=== PATIENT | male | born 1970 | race Caucasian/White ===

== ENCOUNTER 2018-12-17 16:01 | Emergency (ER) | payer OTHER ==
--- NOTE | 2018-12-17 16:30 | C.PDOC ---
History Of Present Illness 48 year old male with PMHx of CAD with cardiac cath (unsure of stents), HTN, and HLD presents to the ED complaining of shortness of breath for one week with intermittent chest pain and nonproductive cough. Reports pain is nonradiating and nonpleuritic. Denies current chest pain in the ED. Time Seen by Provider: 12/17/18 16:24 Chief Complaint (Nursing): Chest Pain History Per: Patient History/Exam Limitations: no limitations Onset/Duration Of Symptoms: Hrs, Intermittent Episodes Current Symptoms Are (Timing): Still Present Quality: "Pain" Past Medical History Reviewed: Historical Data, Nursing Documentation, Vital Signs Vital Signs: Last Vital Signs Temp 97.7 F 12/17/18 16:05 Pulse 70 12/17/18 16:05 Resp 18 12/17/18 16:05 BP 131/83 12/17/18 16:05 Pulse Ox 95 12/17/18 16:05 Primary Care Provider: Cheryl Campa - Medical History PMH: CAD, HTN, Hyperlipidemia Surgical History: No Surg Hx Family History: States: No Known Family Hx - Social History Hx Alcohol Use: No Hx Substance Use: No - Immunization History Hx Tetanus Toxoid Vaccination: No Hx Influenza Vaccination: Yes Hx Pneumococcal Vaccination: No Review Of Systems Constitutional: Negative for: Fever, Chills Cardiovascular: Positive for: Chest Pain. Negative for: Palpitations, Edema, Light Headedness Respiratory: Positive for: Cough, Shortness of Breath Gastrointestinal: Negative for: Nausea, Vomiting, Abdominal Pain, Diarrhea Genitourinary: Negative for: Dysuria, Hematuria Musculoskeletal: Negative for: Neck Pain, Back Pain Physical Exam - Physical Exam Appears: Non-toxic, No Acute Distress, Other (uncomfortable, speaking full sentences, occasional coughing ) Head: Normacephalic Eye(s): bilateral: PERRL, EOMI Oral Mucosa: Moist Neck: Supple Chest: Symmetrical Cardiovascular: Rhythm Regular, No Murmur Respiratory: No Accessory Muscle Use, No Rales, No Rhonchi, No Wheezing, Other (good air movement, CTA B/L ) Extremity: No Pedal Edema Extremity: Bilateral: Atraumatic, Normal Color And Temperature, Normal ROM Neurological/Psych: Oriented x3, Normal Speech Gait: Steady ED Course And Treatment - Laboratory Results Result Diagrams: 12/17/18 16:38 12/17/18 16:38 ECG: Interpreted By Me, Viewed By Me ECG Rhythm: Sinus Rhythm Interpretation Of ECG: Normal axis. No acute ST wave changes. Deep T inversion in I AVL and in V II- Rate From EC O2 Sat by Pulse Oximetry: 95 (RA) Pulse Ox Interpretation: Normal - Other Rad CXR X-Ray: Viewed By Me, Read By Radiologist Interpretation: Accession No. : [id number]. Patient Name / ID : PHOEBE Tamayo / [id number]. Exam Date : 12/17/2018 16:34:02 ( Approved ). Study Comment : Sex / Age : M / 48Y. Creator : Cadence Garibay MD. Dictator : Cadence Garibay MD. Pickle Cutter : Hog Ribber : Cadence Garibay MD. Approver2 : Report Date : 12/17/2018 17:08:05. My Comment : . HISTORY: chest pain. COMPARISON: None available. TECHNIQUE: Chest, one view. FINDINGS: Examination limited by habitus and hypoinflation. LUNGS: Mild left basilar atelectasis. Please note that chest x-ray has limited sensitivity for the detec tion of pulmonary masses. PLEURA: No significant pleural effusion identified. No definite pneumothorax . CARDIOVASCULAR: Heart size appears within normal limits. No significant atherosclerotic calcification present. OSSEOUS STRUCTURES: No acute osseous abnormality identified. VISUALIZED UPPER ABDOMEN: Unremarkable. OTHER FINDINGS: None. IMPRESSION: Mild left basilar atelectasis. Progress Note: EKG or CXR ordered and reviewed. Blood collected and sent to the lab for analysis. Patient treated with Aspirin. Discussed EKG results with Dr. Bolanos, Code heart guest relations agent. States patient does not meet the criteria for code heart. Patient wants to go home and refuses further examinations. Against Medical Advice - AMA Patient Left Against Medical Advice: The patient declines admission to the hospital and wishes to leave the Emergency Department. This action is against my medical advice. This decision was made with informed refusal. The patient was told that admission to the hospital is necessary. Explanation of the reasons why were discussed. The risks of leaving were explained to the patient and include, but are not limited to, worsening of known or currently unknown conditions, permanent disability and from undiagnosed or untreated conditions. The patient has the capacity to make this informed decision and understands my explanation of the current medical problem and risks of leaving. The patient voluntarily accepts these risks and signed an AMA form documenting our conversation. The patient was given the opportunity to ask questions and reconsider. The patient was encouraged to return to the Emergency Department at any time for further care. Disposition Counseled Patient/Family Regarding: Studies Performed, Diagnosis, Need For Followup, Rx Given - Disposition Referrals: Cheryl Campa MD [Non-Staff] - Disposition: AGAINST MEDICAL ADVICE Disposition Time: 18:00 Condition: STABLE Additional Instructions: TAKE ASPIRIN 81 MG EVERY DAY FOLLOW UP WITH YOUR DOCTOR IN 1-2 DAYS RETURN TO ER IMMEDIATELY IF YOUR SYMPTOMS RETURN/WORSEN Prescriptions: Guaifenesin [Expectorant] 200 mg PO Q4 PRN #15 tablet PRN Reason: MUCUS Instructions: Shortness of Breath (Dyspnea) (DC), Leaving Against Medical Advice Forms: [facility] (Swedish), (AMA) Informed Refusal Print Language: HEBREW - Clinical Impression Clinical Impression: Dyspnea, Abnormal EKG, Left against medical advice - Scribe Statement The provider has reviewed the documentation as recorded by the Scribe Ivonne Garduno All medical record entries made by the Scribe were at my direction and personally dictated by me. I have reviewed the chart and agree that the record accurately reflects my personal performance of the history, physical exam, medical decision making, and the department course for this patient. I have also personally directed, reviewed, and agree with the discharge instructions and disposition.
[2018-12-17 16:42] LABS: BASO % 0.3 % (0.0-2.0); EOS # 0.1 K/uL (0.0-0.7); EOS % 1.6 % (0.0-4.0); HEMOGLOBIN 15.2 g/dL (12.0-18.0); LYMPH # 2.5 K/uL (1.0-4.3); LYMPH % 31.3 % (20.0-40.0); MEAN CELL VOLUME 90.5 fL (80.0-94.0); MEAN CORPUSCULAR HEMOGLOBIN 30.3 pg (27.0-31.0); MEAN CORPUSCULAR HGB CONC 33.5 g/dL (33.0-37.0); MEAN PLATELET VOLUME 9.7 fL (7.2-11.7); MONO # 0.5 K/uL (0.0-0.8); MONO % 6.6 % (0.0-10.0); NEUT # 4.8 K/uL (1.8-7.0); NEUT % 60.2 % (50.0-75.0); NRBC % 0.1 % (0.0-2.0); RED CELL DISTRIBUTION WIDTH 13.5 % (11.5-14.5)
[2018-12-17 16:50] LABS: INR 1.1; PARTIAL THROMBOPLASTIN TIME 38.6 SECONDS (21-34); PROTHROMBIN TIME 12.2 SECONDS (9.7-12.2)
[2018-12-17 16:53] LABS: ALB/GLOB RATIO 1.4 (1.0-2.1); ALBUMIN 4.6 g/dL (3.5-5.0); ALT/SGPT 33 U/L (21-72); AST/SGOT 26 U/L (17-59); BLOOD UREA NITROGEN 20 mg/dL (9-20); CALCIUM 9.4 mg/dl (8.6-10.4); GFR NON-AFRICAN AMERICAN > 60
[2018-12-17 17:02] LABS: B-TYPE NATRIURETIC PEPTIDE 160 pg/mL (0-900)
--- NOTE | 2018-12-17 17:11 | RAD ---
HISTORY: chest pain COMPARISON: None available. TECHNIQUE: Chest, one view. FINDINGS: Examination limited by habitus and hypoinflation. LUNGS: Mild left basilar atelectasis. Please note that chest x-ray has limited sensitivity for the detection of pulmonary masses. PLEURA: No significant pleural effusion identified. No definite pneumothorax . CARDIOVASCULAR: Heart size appears within normal limits. No significant atherosclerotic calcification present. OSSEOUS STRUCTURES: No acute osseous abnormality identified. VISUALIZED UPPER ABDOMEN: Unremarkable. OTHER FINDINGS: None. IMPRESSION: Mild left basilar atelectasis.
[2018-12-17 18:03] VITALS: BP 114/65; PULSE 97; RESP 16; TEMP 97.8
[2018-12-17 18:19] VITALS: O2SAT 95
== END 2018-12-17 18:30 | disposition left against medical advice (07) ==
LOC: C.ER 16:01
DX: R06.00 Dyspnea, unspecified (principal); R94.31 Abnormal electrocardiogram [ECG] [EKG]

== ENCOUNTER 2018-12-20 11:58 | Inpatient (IN) | payer OTHER | END 2018-12-23 17:14 | disposition home or self-care (01) | LOC: C.ER 11:58 → C.9E 15:26 → C.6T 16:33 ==

== ENCOUNTER 2018-12-24 21:26 | Observation (INO) | payer OTHER ==
[2018-12-24 21:26] VITALS: BMI 33.7
[2018-12-24] MEDS ORDERED: Aspirin 325 mg EC Tablets PO STA (21:45)
--- NOTE | 2018-12-24 21:46 | C.PDOC ---
History Of Present Illness Patient presents with chest pain since am. Was discharged yesterday after a neg cardiac cath. Dull aching discomfort. No f/c/n/v. Speaking in complete sentences. Time Seen by Provider: 12/24/18 21:42 Chief Complaint (Nursing): Chest Pain History Per: Patient History/Exam Limitations: no limitations Onset/Duration Of Symptoms: Hrs Current Symptoms Are (Timing): Still Present Context: Other Severity: Moderate Pain Scale Rating Of: 4 Quality: Dull Associated Symptoms: denies: Nausea Modifying Factors: None Alleviating Factors: None Additional History Per: Patient Past Medical History Reviewed: Historical Data, Nursing Documentation, Vital Signs Vital Signs: Last Vital Signs Temp 97.9 F 12/24/18 21:30 Pulse 91 H 12/24/18 21:30 Resp 18 12/24/18 21:30 BP 133/90 12/24/18 21:30 Pulse Ox 96 12/24/18 21:30 Primary Care Provider: Cheryl Campa - Medical History PMH: CAD, HTN, Hypercholesterolemia, Hyperlipidemia Family History: States: No Known Family Hx - Social History Hx Alcohol Use: No Hx Substance Use: No - Immunization History Hx Tetanus Toxoid Vaccination: No Hx Influenza Vaccination: Yes Hx Pneumococcal Vaccination: No Review Of Systems Constitutional: Negative for: Fever, Chills Eyes: Negative for: Vision Change ENT: Negative for: Throat Pain Cardiovascular: Positive for: Chest Pain Respiratory: Negative for: Shortness of Breath Gastrointestinal: Negative for: Nausea, Vomiting, Abdominal Pain Genitourinary: Negative for: Dysuria Musculoskeletal: Negative for: Back Pain Skin: Negative for: Rash Neurological: Negative for: Weakness Psych: Positive for: Anxiety Physical Exam - Physical Exam Appears: Non-toxic Skin: Warm, Dry Head: Normacephalic Eye(s): bilateral: Normal Inspection Oral Mucosa: Moist Neck: Supple Chest: Symmetrical Cardiovascular: Rhythm Regular Respiratory: No Rales, Rhonchi, No Wheezing Gastrointestinal/Abdominal: Soft, No Tenderness, No Distention Back: No CVA Tenderness Extremity: No Tenderness Extremity: Bilateral: Atraumatic Pulses: Left Dorsalis Pedis: Normal, Right Dorsalis Pedis: Normal Neurological/Psych: Oriented x3, Normal Speech, Normal Cognition Gait: Steady ED Course And Treatment - Laboratory Results Result Diagrams: 12/24/18 21:53 12/24/18 21:53 ECG: Interpreted By Me, Viewed By Me ECG Rhythm: Sinus Rhythm (80), ST/T Changes (inf lat ischemic changes), Nonspecific Changes (unchanged from 12/20/18) O2 Sat by Pulse Oximetry: 96 Pulse Ox Interpretation: Normal - Radiology CXR: Interpreted by Me, Viewed By Me Progress Note: 9:42 pm sent ekg to dr yates. No criteria for code heart. Pt had an angio yesterday with clean coronaries. Will do CTA Disposition Discussed With Dr.: Jose Cruz Rose Comment: accepted the pt on his service and took ove rthe care at 1:36 AM Doctor Will See Patient In The: ED Counseled Patient/Family Regarding: Studies Performed, Diagnosis - Disposition Disposition: HOSPITALIZED Disposition Time: 21:46 Condition: FAIR Forms: [facility] (Lao) - POA Present On Arrival: None - Clinical Impression Clinical Impression: Chest pain Decision To Admit - Pt Status Changed To: Hospital Disposition Of: Observation - . Bed Request Type: Telemetry Admitting Physician: Jose Cruz Rose Patient Diagnosis: Chest pain
[2018-12-24 21:56] LABS: BASO % 0.5 % (0.0-2.0); EOS # 0.1 K/uL (0.0-0.7); EOS % 1.9 % (0.0-4.0); HEMOGLOBIN 15.6 g/dL (12.0-18.0); LYMPH # 2.2 K/uL (1.0-4.3); LYMPH % 28.1 % (20.0-40.0); MEAN CELL VOLUME 88.5 fL (80.0-94.0); MEAN CORPUSCULAR HEMOGLOBIN 31.2 pg (27.0-31.0); MEAN CORPUSCULAR HGB CONC 35.3 g/dL (33.0-37.0); MEAN PLATELET VOLUME 9.7 fL (7.2-11.7); MONO # 0.4 K/uL (0.0-0.8); MONO % 5.6 % (0.0-10.0); NEUT # 4.9 K/uL (1.8-7.0); NEUT % 63.9 % (50.0-75.0); NRBC % 0.1 % (0.0-2.0); RBC 4.98 Mil/uL (4.40-5.90); RED CELL DISTRIBUTION WIDTH 13.4 % (11.5-14.5); WHITE BLOOD COUNT 7.7 K/uL (4.8-10.8)
[2018-12-24 22:02] LABS: INR 1.2; PARTIAL THROMBOPLASTIN TIME 35.7 SECONDS (21-34); PROTHROMBIN TIME 13.2 SECONDS (9.7-12.2)
[2018-12-24] MEDS ORDERED: Aspirin 325 mg EC Tablets PO ONE (22:06)
[2018-12-24 22:10] LABS: ALB/GLOB RATIO 1.4 (1.0-2.1); ALBUMIN 4.4 g/dL (3.5-5.0); ALT/SGPT 85 U/L (21-72); AST/SGOT 68 U/L (17-59); BLOOD UREA NITROGEN 16 mg/dL (9-20); CALCIUM 9.7 mg/dl (8.6-10.4); GFR NON-AFRICAN AMERICAN > 60
[2018-12-24 22:21] LABS: B-TYPE NATRIURETIC PEPTIDE 428 pg/mL (0-900)
[2018-12-24] MEDS ORDERED: Iodixanol 320 MG/ML 100 ML BOTTLE IV ONE (23:06)
--- NOTE | 2018-12-25 01:42 | CP.PCM.HP ---
<Kevin Tomlin - Last Filed: 12/25/18 02:08> History of Present Illness - History of Present Illness History of Present Illness: Resident History & Physical for Hospitalist Service Patient is a 48 year old male with past medical history of CAD, hypertension, hypercholesterolemia, NIDDM2, HCV with cirrhosis presenting with chief complaint of chest discomfort which began this morning. Discomfort is described as an aching sensation located in epigastric region, with radiation up to his throat. Also admits to bilateral leg cramping unchanged from prior, which he gets while fasting. Patient had cardiac cath with Dr. Sykes on previous admission which was unremarkable. Denies fevers, chills, shortness of breath, nausea, vomiting, abdominal pain, diarrhea, dysuria. PMH: HCV (diagnosed 15 years ago in [place] and completed treatment [place] the [place]) with cirrhosis, NIDDM2, Hypercholesterolemia, HTN, CAD ([place] 10-12 years ago) PSH: cardiac cath 10-12 years ago and November 2018 SHx: Lives in with and kids. Smokes Hookah every 3 months. Denies drug or alcohol use. FHx: Family history of TB. Mother with HCV and liver cancer. Unsure of family history of cradiac disease. Allergies: NKDA PMD: W. Wassef Present on Admission - Present on Admission Any Indicators Present on Admission: No Review of Systems - Review of Systems All systems: reviewed and no additional remarkable complaints except (as per HPI) Past Patient History - Past Social History Smoking Status: Never Smoked - CARDIAC Hx Hypercholesterolemia: Yes Hx Hypertension: Yes - ENDOCRINE/METABOLIC Hx Endocrine Disorders: Yes Hx Diabetes Mellitus Type 2: Yes - HEMATOLOGICAL/ONCOLOGICAL Hx Blood Disorders: Yes Hx Hepatitis C: Yes - MUSCULOSKELETAL/RHEUMATOLOGICAL Hx Falls: No - PSYCHIATRIC Hx Substance Use: No - SURGICAL HISTORY Hx Surgeries: Yes Hx Cardiac Catheterization: Yes - ANESTHESIA Hx Anesthesia: Yes Hx Anesthesia Reactions: No Hx Malignant Hyperthermia: No Meds Allergies/Adverse Reactions: Allergies Allergy/AdvReac Type Severity Reaction Status Date / Time No Known Allergies Allergy Verified 12/24/18 21:42 Physical Exam - Additional Findings Additional findings: - Constitutional Appears: Non-toxic, No Acute Distress - Head Exam Head Exam: ATRAUMATIC, NORMOCEPHALIC - Eye Exam Eye Exam: EOMI, Normal appearance, PERRL - ENT Exam ENT Exam: Mucous Membranes Moist - Respiratory Exam Respiratory Exam: Clear to Auscultation Bilateral, NORMAL BREATHING PATTERN. absent: Rhonchi - Cardiovascular Exam Cardiovascular Exam: REGULAR RHYTHM, +S1, +S2. absent: Gallop, Rubs, Murmur, Tachycardia - GI/Abdominal Exam GI & Abdominal Exam: Soft, Normal Bowel Sounds. absent: Distended, Tenderness, Organomegaly - Extremities Exam Extremities Exam: Normal Capillary Refill, Normal Inspection. absent: Pedal Edema, Tenderness - Neurological Exam Neurological Exam: Alert, Awake, CN II-XII Intact, Oriented x3 - Skin Skin Exam: Dry, Intact, Normal Color, Warm Results - Vital Signs Recent Vital Signs: Last Vital Signs Temp 97.9 F 12/24/18 21:30 Pulse 91 H 12/24/18 21:30 Resp 18 12/24/18 21:30 BP 133/90 12/24/18 21:30 Pulse Ox 96 12/25/18 01:36 - Labs Result Diagrams: 12/24/18 21:53 12/24/18 21:53 Labs: Laboratory Results - last 24 hr 12/24/18 12/24/18 12/24/18 21:53 21:53 21:53 WBC 7.7 RBC 4.98 Hgb 15.6 Hct 44.1 MCV 88.5 MCH 31.2 H MCHC 35.3 RDW 13.4 Plt Count 274 MPV 9.7 Neut % (Auto) 63.9 Lymph % (Auto) 28.1 Divide % (Auto) 5.6 Eos % (Auto) 1.9 Baso % (Auto) 0.5 Neut # (Auto) 4.9 Lymph # (Auto) 2.2 Divide # (Auto) 0.4 Eos # (Auto) 0.1 Baso # (Auto) 0.0 PT 13.2 H INR 1.2 APTT 35.7 H Sodium 137 Potassium 3.4 L Chloride 103 Carbon Dioxide 26 Anion Gap 12 BUN 16 Creatinine 0.8 Est GFR ( Amer) > 60 Est GFR (Non-Af Amer) > 60 Random Glucose 205 H D Calcium 9.7 Total Bilirubin 0.8 AST 68 H D ALT 85 H D Alkaline Phosphatase 54 Troponin I 0.0310 NT-Pro-B Natriuret Pep 428 Total Protein 7.5 Albumin 4.4 Globulin 3.1 Albumin/Globulin Ratio 1.4 Assessment & Plan - Assessment and Plan (Free Text) Assessment: Patient is a 48 year old male with past medical history of CAD, hypertension, hypercholesterolemia, NIDDM2, HCV with cirrhosis presenting with chief complaint of chest pain. Plan: Atypical chest pain - EKG unchanged from prior admission - YAKOV neg x1, followup ROMIx2 - Cardiology, Dr. Sykes, consulted - ASA - Echocardiogram shows normal LVEF 71%, moderately to markedly increased left ventricular wall thickness - followup official CT PE read Transaminitis - Abd U/s: Limited study secondary to pt body habitus. Nodular and cirrhotic contour of the liver with associated increased echogenicity of the hepatic p arenchymal cortex suggestive for fatty infiltration vs. hepatic parenchymal disease. Partially contracted gallbladder. Limited visualization of the pancreas. - Hep C Ab reactive - HIV neg - Per pt, he has been diagnosed with HCV for past 15 y, [place] Hypokalemia - monitor and replete Seasonal allergies - Claritin daily Hx hyperlipidemia - Crestor 20 mg PO QHS - Total chol 239, LDL 187, TG 74, HDL 44 Hx NIDDM - Hold home Metformin - RISS, Hypoglycemia protocol - Accucheck q6h as pt is fasting for Ramadan - A1c 6.7 PPX Protonix, Lovenox Please note: pt is fasting due to Ramadan. Case reviewed with Dr. Rose Tomlin PGY-1 <Jose Cruz Rose - Last Filed: 12/25/18 06:25> Results - Vital Signs Recent Vital Signs: Last Vital Signs Temp 97.4 F L 12/25/18 02:20 Pulse 67 12/25/18 02:20 Resp 20 12/25/18 02:20 BP 125/74 12/25/18 02:20 Pulse Ox 98 12/25/18 02:20 - Labs Result Diagrams: 12/24/18 21:53 12/24/18 21:53 Labs: Laboratory Results - last 24 hr 12/24/18 12/24/18 12/24/18 21:53 21:53 21:53 WBC 7.7 RBC 4.98 Hgb 15.6 Hct 44.1 MCV 88.5 MCH 31.2 H MCHC 35.3 RDW 13.4 Plt Count 274 MPV 9.7 Neut % (Auto) 63.9 Lymph % (Auto) 28.1 Divide % (Auto) 5.6 Eos % (Auto) 1.9 Baso % (Auto) 0.5 Neut # (Auto) 4.9 Lymph # (Auto) 2.2 Divide # (Auto) 0.4 Eos # (Auto) 0.1 Baso # (Auto) 0.0 PT 13.2 H INR 1.2 APTT 35.7 H Sodium 137 Potassium 3.4 L Chloride 103 Carbon Dioxide 26 Anion Gap 12 BUN 16 Creatinine 0.8 Est GFR ( Amer) > 60 Est GFR (Non-Af Amer) > 60 Random Glucose 205 H D Calcium 9.7 Total Bilirubin 0.8 AST 68 H D ALT 85 H D Alkaline Phosphatase 54 Troponin I 0.0310 NT-Pro-B Natriuret Pep 428 Total Protein 7.5 Albumin 4.4 Globulin 3.1 Albumin/Globulin Ratio 1.4 Assessment & Plan - Date & Time Date: 12/25/18 (I have seen and examined the patient. I agree with the findings and plan of care as documented by Dr. Tomlin. Patient with chest pain. ROMIx3 with EKG. Aspirin and Statin. History of Hep C. Transaminitis. May need to follow up with ID for additional treatment. Also with history of diabetes. NISS and accuchecks. Monitor for acute changes.) Time: 06:24 Attending/Attestation - Attestation I have personally seen and examined this patient.: Yes I have fully participated in the care of the patient.: Yes I have reviewed all pertinent clinical information: Yes
[2018-12-25] MEDS ORDERED: Potassium Chloride 20 mEq ER Tab PO STA (02:05)
[2018-12-25] MEDS ORDERED: Dextrose 50% SYRINGE Inj (50 ml) IV PRN (02:16)
[2018-12-25] MEDS ORDERED: Glucagon Recombinant 1 mg Inj IM PRN (02:16)
[2018-12-25] MEDS ORDERED: Potassium Chloride 20 mEq ER Tab PO ONE (02:27)
[2018-12-25] MEDS: (Novolin R) Insulin Human Regular 100 units/ml vial SC SCH ×4 (07:54→21:31)
[2018-12-25] MEDS: Enoxaparin 40 mg Syringe SC SCH (10:01)
[2018-12-25 12:12] LABS: ALB/GLOB RATIO 1.4 (1.0-2.1); ALBUMIN 4.2 g/dL (3.5-5.0); ALT/SGPT 102 U/L (21-72); AST/SGOT 79 U/L (17-59); BLOOD UREA NITROGEN 18 mg/dL (9-20); CALCIUM 9.7 mg/dl (8.6-10.4); GFR NON-AFRICAN AMERICAN > 60
--- NOTE | 2018-12-25 13:13 | CT ---
Date of service: 12/25/2018 PROCEDURE: CT Chest with contrast (Pulmonary Angiogram) HISTORY: chest pain COMPARISON: None available. TECHNIQUE: Axial computed tomography images were obtained of the chest in the pulmonary arterial phase of enhancement. Coronal and sagittal reformatted images were created and reviewed. Intravenous contrast dose: 100 mL of Visipaque 320 intravenously. Radiation dose: Total exam DLP = 499.92 mGy-cm. This CT exam was performed using one or more of the following dose reduction techniques: Automated exposure control, adjustment of the mA and/or kV according to patient size, and/or use of iterative reconstruction technique. FINDINGS: PULMONARY ARTERIES: Unremarkable. No pulmonary embolism. AORTA: No acute findings. No thoracic aortic aneurysm. No aortic atherosclerotic calcification or mural plaque present. LUNGS: There is a mild to moderate pulmonary vascular congestion. Nonspecific ground-glass opacities noted in the lungs likely due to pulmonary congestion. Small opacities noted in the lingula and anterior aspect of the left lower lobe of uncertain is etiology. PLEURAL SPACES: Unremarkable. No effusion or pneumothorax. HEART: The heart is mildly enlarged. The main pulmonary artery is mildly enlarged. No evidence of pericardial effusion. LYMPH NODES: No lymphadenopathy. BONES, CHEST WALL: Unremarkable. No fracture or destructive lesion OTHER FINDINGS: Hepatomegaly and hepatic steatosis noted. IMPRESSION: No evidence of pulmonary embolus. Cardiomegaly. Mildly enlarged main pulmonary artery. Ehoj-du-dilcxurg pulmonary vascular congestion. Small opacities at left lower lung of uncertain etiology and may represent pneumonia versus atelectasis or aspiration.. [facility] contains concordant findings.
[2018-12-25 13:18] LABS: HEMOGLOBIN 15.5 g/dL (12.0-18.0); MEAN CORPUSCULAR HGB CONC 34.8 g/dL (33.0-37.0); MEAN PLATELET VOLUME 9.8 fL (7.2-11.7); RBC 5.01 Mil/uL (4.40-5.90); RED CELL DISTRIBUTION WIDTH 13.7 % (11.5-14.5)
[2018-12-25 13:41] LABS: CK-MB 1.53 ng/mL (0.0-3.38); TROPONIN I 0.023 ng/mL (0.00-0.120)
[2018-12-25] MEDS ORDERED: Sodium Chloride 0.9% 1,000 ML IV SCH (15:15)
--- NOTE | 2018-12-25 17:22 | CP.PCM.PN ---
Subjective - Date & Time of Evaluation Date of Evaluation: 12/25/18 Time of Evaluation: 19:35 - Subjective Subjective: PGY-[address] Keys Patient seen and examined at bedside. No acute events overnight. Patient states chest pain has improved, but still reporting some chest pain which he said feels like heartburn. However he does endorse that the pain he had yesterday was much more severe. Denies SOB, n/v/d/c, dizziness, fatigue, palpitations, focal weakness. Objective - Vital Signs/Intake and Output Vital Signs (last 24 hours): Temp Pulse Resp BP Pulse Ox 98.1 F 73 20 116/76 96 12/25/18 16:00 12/25/18 16:09 12/25/18 16:00 12/25/18 16:00 12/25/18 16:00 - Medications Medications: Current Medications Aspirin (Aspirin Chewable) 81 mg PO DAILY [facility] Last Admin: 12/25/18 09:58 Dose: Not Given Benzonatate (Tessalon Perles) 100 mg PO TID PRN PRN Reason: Cough Dextrose (Dextrose 50% Inj) 0 ml IV STAT PRN; Protocol PRN Reason: Hypoglycemia Protocol Dextrose (Glutose 15) 0 gm PO ONCE PRN; Protocol PRN Reason: Hypoglycemia Protocol Enoxaparin Sodium (Lovenox) 40 mg SC DAILY [facility] Last Admin: 12/25/18 10:01 Dose: 40 mg Glucagon (Glucagen Diagnostic Kit) 0 mg IM STAT PRN; Protocol PRN Reason: Hypoglycemia Protocol Dextrose (Dextrose 5% In Water 1000 Ml) 1,000 mls @ 0 mls/hr IV .Q0M PRN; Protocol PRN Reason: Hypoglycemia Protocol Sodium Chloride (Sodium Chloride 0.9%) 1,000 mls @ 50 mls/hr IV .Q20H [facility] Stop: 12/25/18 19:00 Last Admin: 12/25/18 16:07 Dose: Not Given Insulin Human Regular (Novolin R) 0 unit SC ACHS [facility]; Protocol Last Admin: 12/25/18 17:12 Dose: Not Given Loratadine (Claritin) 10 mg PO Q24H [facility] Last Admin: 12/25/18 03:06 Dose: 10 mg Pantoprazole Sodium (Protonix Inj) 40 mg IVP DAILY [facility] Last Admin: 12/25/18 10:01 Dose: 40 mg Rosuvastatin Calcium (Crestor) 20 mg PO HS [facility] - Labs Labs: 12/25/18 13:12 12/25/18 08:00 PT 13.2 SECONDS (9.7-12.2) H 12/24/18 21:53 INR 1.2 12/24/18 21:53 APTT 35.7 SECONDS (21-34) H 12/24/18 21:53 - Constitutional Appears: Non-toxic, In Acute Distress - Head Exam Head Exam: ATRAUMATIC, NORMOCEPHALIC - Eye Exam Eye Exam: EOMI - ENT Exam ENT Exam: Mucous Membranes Moist - Respiratory Exam Respiratory Exam: Clear to Ausculation Bilateral, NORMAL BREATHING PATTERN. absent: Rhonchi, Wheezes - Cardiovascular Exam Cardiovascular Exam: REGULAR RHYTHM, +S1, +S2 - GI/Abdominal Exam GI & Abdominal Exam: Soft, Normal Bowel Sounds. absent: Tenderness - Extremities Exam Extremities Exam: Normal Inspection. absent: Pedal Edema - Neurological Exam Neurological Exam: Alert, Awake, Oriented x3 - Psychiatric Exam Psychiatric exam: Normal Affect, Normal Mood - Skin Skin Exam: Dry, Intact Assessment and Plan - Assessment and Plan (Free Text) Assessment: Patient is a 48 year old male with past medical history of CAD, hypertension, hypercholesterolemia, NIDDM2, HCV with cirrhosis presenting with chief complaint of chest pain. Plan: Atypical chest pain - EKG unchanged from prior admission - YAKOV neg x1, followup ROMIx2 - Cardiology, Dr. Sykes, consulted - ASA - Echocardiogram shows normal LVEF 71%, moderately to markedly increased left ventricular wall thickness - Recent cath with normal coronaries - followup official CTA 12/24 - no evidence of PE - Cardiology consult, Dr. Bolanos - --Dr. Sykes requesting second opinion as patient with EKG changes and atypical chest pain despite negative recent cath. Transaminitis - Abd U/s: Limited study secondary to pt body habitus. Nodular and cirrhotic con tour of the liver with associated increased echogenicity of the hepatic p arenchymal cortex suggestive for fatty infiltration vs. hepatic parenchymal disease. Partially contracted gallbladder. Limited visualization of the pancreas. - Hep C Ab reactive - HIV neg - Per pt, he has been diagnosed with HCV for past 15 y, [place] Hypokalemia - monitor and replete Seasonal allergies - Claritin daily Hx hyperlipidemia - Crestor 20 mg PO QHS - Total chol 239, LDL 187, TG 74, HDL 44 Hx NIDDM - Hold home Metformin - RISS, Hypoglycemia protocol - Accucheck q6h as pt is fasting for Ramadan - A1c 6.7 PPX Protonix, Lovenox Please note: pt is fasting due to Ramadan. Assessment and plan d/w Dr. Massimo Salcedo, PGY-1
[2018-12-26 03:03] LABS: BARBITURATES, UR NEGATIVE (NEGATIVE); BENZODIAZEPINES, UR NEGATIVE (NEGATIVE); OPIATES, UR NEGATIVE (NEGATIVE); PHENCYCLIDINE, UR NEGATIVE (NEGATIVE)
--- NOTE | 2018-12-26 07:21 | CP.PCM.CON ---
History of Present Illness - History of Present Illness History of Present Illness: Lori Estrada, PGY1 Consult Note for Dr. 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 Cardio team is being consulted for the eval of pts chest discomfort. Pt states that he has had this pain for more than 2 weeks. Pt describes the discomfort as a burning sensation and states that he is not having chest pain. Pt reports that the discomfort is worse when he lays down flat after a meal and that he always notes radiation up to his esophagus. Pt denies any diaphoresis or SOB with these episodes. Pt reports that he has minimal improvement with famotidine which he has tried. At this time the pt admits to the burning sensation which is radiating up to his esophagus. Otherwise the pt denies any fevers, chills, headache, lightheadedness, chest pain, palpitations, SOB, cough, abd pain, n/v, c/d or dysuria. Of note pt had recent cardiac cath on 12/25/18: which showed patent coronary vessels as well as normal systolic function at 65%. Recent echo on 12/22/18: Also shows normal LVEF, apical hypertrophy and a grade 1 abnormal relaxation pattern. Review of Systems - Review of Systems Review of Systems: 12 Point ROS reviewed and negative except noted in HPI above. Past Patient History - Past Social History Smoking Status: Never Smoked - CARDIAC Hx Hypercholesterolemia: Yes Hx Hypertension: Yes - ENDOCRINE/METABOLIC Hx Endocrine Disorders: Yes Hx Diabetes Mellitus Type 2: Yes - HEMATOLOGICAL/ONCOLOGICAL Hx Blood Disorders: Yes Hx Hepatitis C: Yes - MUSCULOSKELETAL/RHEUMATOLOGICAL Hx Falls: No - PSYCHIATRIC Hx Substance Use: No - SURGICAL HISTORY Hx Surgeries: Yes Hx Cardiac Catheterization: Yes - ANESTHESIA Hx Anesthesia: Yes Hx Anesthesia Reactions: No Hx Malignant Hyperthermia: No Meds Home Medications: Home Medication List Medication Instructions Recorded Confirmed Type Aspirin [Aspirin Chewable] 81 mg PO DAILY #30 ctb 12/26/18 Rx Loratadine [Claritin] 10 mg PO Q24H #30 tab 12/26/18 Rx Rosuvastatin Calcium [Crestor] 20 mg PO HS #30 tab 12/26/18 Rx Sucralfate [Carafate Oral Susp] 1 gm PO TID 30 Days #90 udc 12/26/18 Rx Metoclopramide [Reglan] 5 mg PO ACHS #90 tab 12/27/18 Rx Metoprolol Succinate XL [Toprol XL] 25 mg PO DAILY 90 Days #90 tab 12/27/18 Rx Omeprazole 40 mg PO DAILY #30 capsule. 12/27/18 Rx metFORMIN [glucOPHAGE] 850 mg PO BID #60 tab 12/27/18 Rx Allergies/Adverse Reactions: Allergies Allergy/AdvReac Type Severity Reaction Status Date / Time No Known Allergies Allergy Verified 12/24/18 21:42 - Medications Medications: Current Medications Aspirin (Aspirin Chewable) 81 mg PO DAILY [facility] Last Admin: 12/25/18 21:32 Dose: 81 mg Benzonatate (Tessalon Perles) 100 mg PO TID PRN PRN Reason: Cough Dextrose (Dextrose 50% Inj) 0 ml IV STAT PRN; Protocol PRN Reason: Hypoglycemia Protocol Dextrose (Glutose 15) 0 gm PO ONCE PRN; Protocol PRN Reason: Hypoglycemia Protocol Enoxaparin Sodium (Lovenox) 40 mg SC DAILY [facility] Last Admin: 12/25/18 10:01 Dose: 40 mg Glucagon (Glucagen Diagnostic Kit) 0 mg IM STAT PRN; Protocol PRN Reason: Hypoglycemia Protocol Dextrose (Dextrose 5% In Water 1000 Ml) 1,000 mls @ 0 mls/hr IV .Q0M PRN; Protocol PRN Reason: Hypoglycemia Protocol Insulin Human Regular (Novolin R) 0 unit SC [facility]; Protocol Last Admin: 12/25/18 21:31 Dose: Not Given Loratadine (Claritin) 10 mg PO Q24H [facility] Last Admin: 12/26/18 01:53 Dose: 10 mg Pantoprazole Sodium (Protonix Inj) 40 mg IVP DAILY [facility] Last Admin: 12/25/18 10:01 Dose: 40 mg Rosuvastatin Calcium (Crestor) 20 mg PO HS [facility] Last Admin: 12/25/18 21:33 Dose: 20 mg Physical Exam - Constitutional Appears: Non-toxic, No Acute Distress - Head Exam Head Exam: ATRAUMATIC, NORMAL INSPECTION, NORMOCEPHALIC - Eye Exam Eye Exam: EOMI, Normal appearance, PERRL - Respiratory Exam Respiratory Exam: Clear to Auscultation Bilateral, NORMAL BREATHING PATTERN. absent: Accessory Muscle Use, Rales, Rhonchi, Respiratory Distress, Stridor - Cardiovascular Exam Cardiovascular Exam: RRR, +S1, +S2. absent: Gallop, Rubs - GI/Abdominal Exam GI & Abdominal Exam: Normal Bowel Sounds, Soft. absent: Distended, Firm, Guarding, Tenderness - Extremities Exam Extremities exam: Positive for: normal capillary refill, normal inspection, pedal pulses present. Negative for: calf tenderness, pedal edema - Back Exam Back exam: NORMAL INSPECTION. absent: CVA tenderness (L), CVA tenderness (R) - Neurological Exam Neurological exam: Alert, Oriented x3 - Psychiatric Exam Psychiatric exam: Normal Affect, Normal Mood - Skin Skin Exam: Dry, Intact, Normal Color Results - Vital Signs Recent Vital Signs: Last Vital Signs Temp 97.8 F 12/25/18 23:00 Pulse 67 12/25/18 23:43 Resp 20 12/25/18 23:00 BP 102/59 L 12/25/18 23:00 Pulse Ox 95 12/25/18 23:00 - Labs Result Diagrams: 12/27/18 07:05 12/27/18 07:05 Labs: Laboratory Results - last 24 hr 12/25/18 12/25/18 12/25/18 08:00 11:30 13:12 WBC RBC Hgb Hct MCV MCH MCHC RDW Plt Count MPV Sodium 135 Potassium 4.3 Chloride 103 Carbon Dioxide 23 Anion Gap 14 BUN 18 Creatinine 0.8 Est GFR ( Amer) > 60 Est GFR (Non-Af Amer) > 60 POC Glucose (mg/dL) 111 H Random Glucose 144 H D Calcium 9.7 Phosphorus 3.5 Magnesium 2.1 Total Bilirubin 0.6 AST 79 H ALT 102 H Alkaline Phosphatase 54 Total Creatine Kinase 85 89 CK-MB (Mass) 1.50 1.53 Troponin I 0.0290 0.0230 Total Protein 7.3 Albumin 4.2 Globulin 3.1 Albumin/Globulin Ratio 1.4 Urine Opiates Screen Urine Methadone Screen Ur Barbiturates Screen Ur Phencyclidine Scrn Ur Amphetamines Screen U Benzodiazepines Scrn U Oth Cocaine Metabols U Cannabinoids Screen 12/25/18 12/25/18 12/25/18 13:12 16:26 21:17 WBC 7.0 RBC 5.01 Hgb 15.5 Hct 44.6 MCV 89.0 MCH 31.0 MCHC 34.8 RDW 13.7 Plt Count 275 MPV 9.8 Sodium Potassium Chloride Carbon Dioxide Anion Gap BUN Creatinine Est GFR ( Amer) Est GFR (Non-Af Amer) POC Glucose (mg/dL) 101 192 H Random Glucose Calcium Phosphorus Magnesium Total Bilirubin AST ALT Alkaline Phosphatase Total Creatine Kinase CK-MB (Mass) Troponin I Total Protein Albumin Globulin Albumin/Globulin Ratio Urine Opiates Screen Urine Methadone Screen Ur Barbiturates Screen Ur Phencyclidine Scrn Ur Amphetamines Screen U Benzodiazepines Scrn U Oth Cocaine Metabols U Cannabinoids Screen 12/26/18 12/26/18 02:34 06:07 WBC RBC Hgb Hct MCV MCH MCHC RDW Plt Count MPV Sodium Potassium Chloride Carbon Dioxide Anion Gap BUN Creatinine Est GFR ( Amer) Est GFR (Non-Af Amer) POC Glucose (mg/dL) 243 H Random Glucose Calcium Phosphorus Magnesium Total Bilirubin AST ALT Alkaline Phosphatase Total Creatine Kinase CK-MB (Mass) Troponin I Total Protein Albumin Globulin Albumin/Globulin Ratio Urine Opiates Screen Negative Urine Methadone Screen Negative Ur Barbiturates Screen Negative Ur Phencyclidine Scrn Negative Ur Amphetamines Screen Negative U Benzodiazepines Scrn Negative U Oth Cocaine Metabols Negative U Cannabinoids Screen Negative Assessment & Plan - Assessment and Plan (Free Text) Assessment: Pt is a 48 yo M with pmhx of questionable CAD, HTN, HLD, NIDDM2, HCV w/cirrhosis who presents for epigastric burning with radiation up to esophagus which is worse at night. Plan: Chest discomfort likely 2/2 GERD: - Pt had recent cardiac cath on 12/25/18 and echo on 12/22/18. - Cath showed patent coronaries and normal LV sys function at 65% - Echo showed LVEF normal, apical hypertrophy and grade 1 abnormal relaxation pattern. - Pt denies any exertional chest pain, and states that is somewhat improved by famotidine, not related or improved by rest - Trops x3 (-) - Added Toprol XL 25 qd
--- NOTE | 2018-12-26 07:35 | CP.PCM.CON ---
History of Present Illness - History of Present Illness History of Present Illness: CC: Chest Pain Patient seen and examined this morning at bedside. Had epigastric pain in the morning radiated to throat Non exertional pain Objective - Additional Findings Additional findings: - Constitutional Appears: Non-toxic, No Acute Distress - Head Exam Head Exam: ATRAUMATIC, NORMOCEPHALIC - Eye Exam Eye Exam: Normal appearance - Neck Exam Neck exam: Negative for: Lymphadenopathy, Tenderness - Respiratory Exam Respiratory Exam: NORMAL BREATHING PATTERN. absent: Accessory Muscle Use, Rales, Rhonchi, Wheezes, Respiratory Distress - Cardiovascular Exam Cardiovascular Exam: REGULAR RHYTHM, +S1, +S2 - GI/Abdominal Exam GI & Abdominal Exam: Soft. absent: Tenderness - Extremities Exam Extremities exam: Negative for: calf tenderness, pedal edema - Neurological Exam Neurological exam: Alert, Oriented x3 - Psychiatric Exam Psychiatric exam: Normal Affect, Normal Mood - Skin Skin Exam: Dry, Warm Assessment and Plan - Assessment and Plan (Free Text) Plan: Atypical chest pain-Trop x 3 negative. Cath Normal Coronaries. CTA negative for PE/Aortic aneurysm and dissections Abnormal EKG-Unchanged ECHO 12/20/18: * LV EF ~ 70% * LVH. * apical hypertrophy * mild AR Trop is normal x3 (as well as 1 normal reading on 12/17/18) D-dimer negative Utox negative Cough/Bronchitis management as per primary team Hyperlipidemia DM HCV w/cirrhosis/Epigastric pain management as per primary team GI Consult Add Statins, SETH I and B blockers if patient can tolerate 2nd Opinion with Dr. Bolanos to r/o Cardiac etiology for the chest pain. (D/W Dr. Bolanos) Past Patient History - Past Social History Smoking Status: Never Smoked - CARDIAC Hx Hypercholesterolemia: Yes Hx Hypertension: Yes - ENDOCRINE/METABOLIC Hx Endocrine Disorders: Yes Hx Diabetes Mellitus Type 2: Yes - HEMATOLOGICAL/ONCOLOGICAL Hx Blood Disorders: Yes Hx Hepatitis C: Yes - MUSCULOSKELETAL/RHEUMATOLOGICAL Hx Falls: No - PSYCHIATRIC Hx Substance Use: No - SURGICAL HISTORY Hx Surgeries: Yes Hx Cardiac Catheterization: Yes - ANESTHESIA Hx Anesthesia: Yes Hx Anesthesia Reactions: No Hx Malignant Hyperthermia: No Meds Allergies/Adverse Reactions: Allergies Allergy/AdvReac Type Severity Reaction Status Date / Time No Known Allergies Allergy Verified 12/24/18 21:42 - Medications Medications: Current Medications Aspirin (Aspirin Chewable) 81 mg PO DAILY [facility] Last Admin: 12/25/18 21:32 Dose: 81 mg Benzonatate (Tessalon Perles) 100 mg PO TID PRN PRN Reason: Cough Dextrose (Dextrose 50% Inj) 0 ml IV STAT PRN; Protocol PRN Reason: Hypoglycemia Protocol Dextrose (Glutose 15) 0 gm PO ONCE PRN; Protocol PRN Reason: Hypoglycemia Protocol Enoxaparin Sodium (Lovenox) 40 mg SC DAILY [facility] Last Admin: 12/25/18 10:01 Dose: 40 mg Glucagon (Glucagen Diagnostic Kit) 0 mg IM STAT PRN; Protocol PRN Reason: Hypoglycemia Protocol Dextrose (Dextrose 5% In Water 1000 Ml) 1,000 mls @ 0 mls/hr IV .Q0M PRN; Protocol PRN Reason: Hypoglycemia Protocol Insulin Human Regular (Novolin R) 0 unit SC ACHS [facility]; Protocol Last Admin: 12/25/18 21:31 Dose: Not Given Loratadine (Claritin) 10 mg PO Q24H [facility] Last Admin: 12/26/18 01:53 Dose: 10 mg Pantoprazole Sodium (Protonix Inj) 40 mg IVP DAILY [facility] Last Admin: 12/25/18 10:01 Dose: 40 mg Rosuvastatin Calcium (Crestor) 20 mg PO HS [facility] Last Admin: 12/25/18 21:33 Dose: 20 mg Results - Vital Signs Recent Vital Signs: Last Vital Signs Temp 97.8 F 12/25/18 23:00 Pulse 67 12/25/18 23:43 Resp 20 12/25/18 23:00 BP 102/59 L 12/25/18 23:00 Pulse Ox 95 12/25/18 23:00 - Labs Result Diagrams: 12/25/18 13:12 12/25/18 08:00 Labs: Laboratory Results - last 24 hr 12/25/18 12/25/18 12/25/18 08:00 11:30 13:12 WBC RBC Hgb Hct MCV MCH MCHC RDW Plt Count MPV Sodium 135 Potassium 4.3 Chloride 103 Carbon Dioxide 23 Anion Gap 14 BUN 18 Creatinine 0.8 Est GFR ( Amer) > 60 Est GFR (Non-Af Amer) > 60 POC Glucose (mg/dL) 111 H Random Glucose 144 H D Calcium 9.7 Phosphorus 3.5 Magnesium 2.1 Total Bilirubin 0.6 AST 79 H ALT 102 H Alkaline Phosphatase 54 Total Creatine Kinase 85 89 CK-MB (Mass) 1.50 1.53 Troponin I 0.0290 0.0230 Total Protein 7.3 Albumin 4.2 Globulin 3.1 Albumin/Globulin Ratio 1.4 Urine Opiates Screen Urine Methadone Screen Ur Barbiturates Screen Ur Phencyclidine Scrn Ur Amphetamines Screen U Benzodiazepines Scrn U Oth Cocaine Metabols U Cannabinoids Screen 12/25/18 12/25/18 12/25/18 13:12 16:26 21:17 WBC 7.0 RBC 5.01 Hgb 15.5 Hct 44.6 MCV 89.0 MCH 31.0 MCHC 34.8 RDW 13.7 Plt Count 275 MPV 9.8 Sodium Potassium Chloride Carbon Dioxide Anion Gap BUN Creatinine Est GFR ( Amer) Est GFR (Non-Af Amer) POC Glucose (mg/dL) 101 192 H Random Glucose Calcium Phosphorus Magnesium Total Bilirubin AST ALT Alkaline Phosphatase Total Creatine Kinase CK-MB (Mass) Troponin I Total Protein Albumin Globulin Albumin/Globulin Ratio Urine Opiates Screen Urine Methadone Screen Ur Barbiturates Screen Ur Phencyclidine Scrn Ur Amphetamines Screen U Benzodiazepines Scrn U Oth Cocaine Metabols U Cannabinoids Screen 12/26/18 12/26/18 02:34 06:07 WBC RBC Hgb Hct MCV MCH MCHC RDW Plt Count MPV Sodium Potassium Chloride Carbon Dioxide Anion Gap BUN Creatinine Est GFR ( Amer) Est GFR (Non-Af Amer) POC Glucose (mg/dL) 243 H Random Glucose Calcium Phosphorus Magnesium Total Bilirubin AST ALT Alkaline Phosphatase Total Creatine Kinase CK-MB (Mass) Troponin I Total Protein Albumin Globulin Albumin/Globulin Ratio Urine Opiates Screen Negative Urine Methadone Screen Negative Ur Barbiturates Screen Negative Ur Phencyclidine Scrn Negative Ur Amphetamines Screen Negative U Benzodiazepines Scrn Negative U Oth Cocaine Metabols Negative U Cannabinoids Screen Negative
[2018-12-26 07:55] LABS: BASO % 0.1 % (0.0-2.0); EOS # 0.2 K/uL (0.0-0.7); HEMOGLOBIN 15.2 g/dL (12.0-18.0); LYMPH # 1.5 K/uL (1.0-4.3); LYMPH % 20.7 % (20.0-40.0); MEAN CELL VOLUME 89.1 fL (80.0-94.0); MEAN CORPUSCULAR HEMOGLOBIN 30.8 pg (27.0-31.0); MEAN CORPUSCULAR HGB CONC 34.5 g/dL (33.0-37.0); MEAN PLATELET VOLUME 10.3 fL (7.2-11.7); MONO # 0.6 K/uL (0.0-0.8); MONO % 8.7 % (0.0-10.0); NEUT % 68.5 % (50.0-75.0); RBC 4.95 Mil/uL (4.40-5.90); RED CELL DISTRIBUTION WIDTH 13.4 % (11.5-14.5); WHITE BLOOD COUNT 7.4 K/uL (4.8-10.8)
[2018-12-26] MEDS: (Novolin R) Insulin Human Regular 100 units/ml vial SC SCH ×4 (08:08→22:12)
[2018-12-26] MEDS ORDERED: Phytonadione 10 mg/ml Inj (Adult) SC STA (08:17)
[2018-12-26 08:51] LABS: ALB/GLOB RATIO 1.7 (1.0-2.1); ALBUMIN 4.3 g/dL (3.5-5.0); ALT/SGPT 87 U/L (21-72); AST/SGOT 47 U/L (17-59); BLOOD UREA NITROGEN 19 mg/dL (9-20); CALCIUM 9.5 mg/dl (8.6-10.4); GFR NON-AFRICAN AMERICAN > 60
[2018-12-26] MEDS ORDERED: Propofol 10 mg/ml Inj (20 ML) ONE (09:30)
[2018-12-26] MEDS ORDERED: Peg-Electrolyte Oral Soln 4L (Golytely) PO ONE (10:00)
[2018-12-26] MEDS: Sucralfate 1 gm/10 ml Oral Susp UD PO SCH ×4 (10:52→21:28)
[2018-12-26] MEDS: Enoxaparin 40 mg Syringe SC SCH (10:55)
--- NOTE | 2018-12-26 14:38 | CP.PCM.PN ---
<Kevin Tomlin L - Last Filed: 12/26/18 20:43> Subjective - Date & Time of Evaluation Date of Evaluation: 12/26/18 Time of Evaluation: 08:00 - Subjective Subjective: Resident Progress Note for Hospitalist Service Patient examined at bedside. No acute events overnight. Patient s/p EGD showing esophagitis, hiatal hernia, gastroparesis. Patient NPO for repeat EGD tomorrow with Dr. Brewer. Denies fevers, chills, chest pain, shortness of breath, diarrhea, dysuria. Objective - Vital Signs/Intake and Output Vital Signs (last 24 hours): Temp Pulse Resp BP Pulse Ox 98 F 77 12 123/78 96 12/26/18 10:05 12/26/18 12:00 12/26/18 10:05 12/26/18 10:05 12/26/18 10:05 Intake and Output: 12/26/18 12/26/18 06:59 18:59 Intake Total 400 Balance 400 - Medications Medications: Current Medications Aspirin (Aspirin Chewable) 81 mg PO DAILY [facility] Last Admin: 12/26/18 10:52 Dose: Not Given Benzonatate (Tessalon Perles) 100 mg PO TID PRN PRN Reason: Cough Dextrose (Dextrose 50% Inj) 0 ml IV STAT PRN; Protocol PRN Reason: Hypoglycemia Protocol Dextrose (Glutose 15) 0 gm PO ONCE PRN; Protocol PRN Reason: Hypoglycemia Protocol Enoxaparin Sodium (Lovenox) 40 mg SC DAILY [facility] Last Admin: 12/26/18 10:55 Dose: 40 mg Glucagon (Glucagen Diagnostic Kit) 0 mg IM STAT PRN; Protocol PRN Reason: Hypoglycemia Protocol Dextrose (Dextrose 5% In Water 1000 Ml) 1,000 mls @ 0 mls/hr IV .Q0M PRN; Protocol PRN Reason: Hypoglycemia Protocol Insulin Human Regular (Novolin R) 0 unit SC ACHS [facility]; Protocol Last Admin: 12/26/18 11:21 Dose: Not Given Lisinopril (Zestril) 2.5 mg PO DAILY [facility] Loratadine (Claritin) 10 mg PO Q24H [facility] Last Admin: 12/26/18 01:53 Dose: 10 mg Metoclopramide HCl (Reglan) 5 mg IVP Q6H [facility] Stop: 12/28/18 10:00 Last Admin: 12/26/18 14:20 Dose: Not Given Pantoprazole Sodium (Protonix Inj) 40 mg IVP DAILY [facility] Last Admin: 12/26/18 10:55 Dose: 40 mg Rosuvastatin Calcium (Crestor) 20 mg PO HS [facility] Last Admin: 12/25/18 21:33 Dose: 20 mg Sucralfate (Carafate Oral Susp) 1 gm PO TID [facility] Stop: 12/30/18 23:59 Last Admin: 12/26/18 14:20 Dose: Not Given - Labs Labs: 12/26/18 07:50 12/26/18 07:50 PT 13.2 SECONDS (9.7-12.2) H 12/24/18 21:53 INR 1.2 12/24/18 21:53 APTT 35.7 SECONDS (21-34) H 12/24/18 21:53 - Constitutional Appears: Non-toxic, In Acute Distress - Head Exam Head Exam: ATRAUMATIC, NORMOCEPHALIC - Eye Exam Eye Exam: EOMI - ENT Exam ENT Exam: Mucous Membranes Moist - Respiratory Exam Respiratory Exam: Clear to Ausculation Bilateral, NORMAL BREATHING PATTERN. absent: Rhonchi, Wheezes - Cardiovascular Exam Cardiovascular Exam: REGULAR RHYTHM, +S1, +S2 - GI/Abdominal Exam GI & Abdominal Exam: Soft, Normal Bowel Sounds. absent: Tenderness - Extremities Exam Extremities Exam: Normal Inspection. absent: Pedal Edema - Neurological Exam Neurological Exam: Alert, Awake, Oriented x3 - Psychiatric Exam Psychiatric exam: Normal Affect, Normal Mood - Skin Skin Exam: Dry, Intact Assessment and Plan - Assessment and Plan (Free Text) Assessment: Patient is a 48 year old male with past medical history of CAD, hypertension, hypercholesterolemia, NIDDM2, HCV with cirrhosis presenting with chief complaint of chest pain. Plan: Atypical chest pain, acute - EKG unchanged from prior admission - YAKOV neg x1, followup ROMIx2 - Cardiology, Dr. Sykes, consulted - ASA - Echocardiogram shows normal LVEF 71%, moderately to markedly increased left ventricular wall thickness - Recent cath with normal coronaries - followup official CTA 12/24 - no evidence of PE - Cardiology consult, Dr. Bolanos - Dr. Sykes requesting second opinion as patient with EKG changes and atypical chest pain despite negative recent cath Epigastric pain, acute - GI consulted, appreciate recs - Protonix - repeat EGD tomorrow for better visualization - NPO after midnight Transaminitis, chronic - Abd U/s: Limited study secondary to pt body habitus. Nodular and cirrhotic contour of the liver with associated increased echogenicity of the hepatic p arenchymal cortex suggestive for fatty infiltration vs. hepatic parenchymal disease. Partially contracted gallbladder. Limited visualization of the pancreas. - Hep C Ab reactive - HIV neg - Per pt, he has been diagnosed with HCV for past 15 y, [place] Hypokalemia, acute - monitor and replete Seasonal allergies, chronic - Claritin daily Hx hyperlipidemia, chronic - Crestor 20 mg PO QHS - Total chol 239, LDL 187, TG 74, HDL 44 Hx NIDDM, chronic - Hold home Metformin - RISS, Hypoglycemia protocol - Accucheck q6h as pt is fasting for Ramadan - A1c 6.7 PPX Protonix, Lovenox Please note: pt is fasting due to Ramadan. Dispo: pending repeat EGD and further GI recommendations Case reviewed with Dr. Damion Tomlin PGY-1 <Damion Deluca - Last Filed: 12/28/18 19:17> Objective - Vital Signs/Intake and Output Vital Signs (last 24 hours): Temp Pulse Resp BP Pulse Ox 98.3 F 76 20 107/69 97 12/27/18 16:25 12/27/18 16:25 12/27/18 16:25 12/27/18 16:25 12/27/18 16:25 - Labs Labs: 12/27/18 07:05 12/27/18 07:05 PT 13.2 SECONDS (9.7-12.2) H 12/24/18 21:53 INR 1.2 12/24/18 21:53 APTT 35.7 SECONDS (21-34) H 12/24/18 21:53 Attending/Attestation - Attestation I have personally seen and examined this patient.: Yes I have fully participated in the care of the patient.: Yes I have reviewed all pertinent clinical information, including history, physical exam and plan: Yes Notes (Text): 12/28/18 19:17 This is a late entry. Care of this patient was gone over in detail with resident Dr. Brown. Damion Deluca D.O.
[2018-12-26 15:37] VITALS: RESP 20
[2018-12-26] MEDS ORDERED: Bisacodyl 5mg EC Tab PO ONE (17:00)
--- NOTE | 2018-12-26 20:23 | CP.PCM.PN ---
Subjective - Date & Time of Evaluation Date of Evaluation: 12/26/18 Time of Evaluation: 09:20 - Subjective Subjective: Patient seen and evaluated No cardiac events noted Objective - Additional Findings Additional findings: - Constitutional Appears: Non-toxic, No Acute Distress - Head Exam Head Exam: ATRAUMATIC, NORMOCEPHALIC - Eye Exam Eye Exam: Normal appearance - Neck Exam Neck exam: Negative for: Lymphadenopathy, Tenderness - Respiratory Exam Respiratory Exam: NORMAL BREATHING PATTERN. absent: Accessory Muscle Use, Rales, Rhonchi, Wheezes, Respiratory Distress - Cardiovascular Exam Cardiovascular Exam: REGULAR RHYTHM, +S1, +S2 - GI/Abdominal Exam GI & Abdominal Exam: Soft. absent: Tenderness - Extremities Exam Extremities exam: Negative for: calf tenderness, pedal edema - Neurological Exam Neurological exam: Alert, Oriented x3 - Psychiatric Exam Psychiatric exam: Normal Affect, Normal Mood - Skin Skin Exam: Dry, Warm Assessment and Plan - Assessment and Plan (Free Text) Plan: Atypical chest pain-Trop x 3 negative. Cath Normal Coronaries. CTA negative for PE/Aortic aneurysm and dissections Abnormal EKG-Unchanged ECHO 12/20/18: * LV EF ~ 70% * LVH. * apical hypertrophy * mild AR Trop is normal x3 (as well as 1 normal reading on 12/17/18) D-dimer negative Utox negative Cough/Bronchitis management as per primary team Hyperlipidemia DM HCV w/cirrhosis/Epigastric pain management as per primary team GI Consult Add Statins, SETH I and B blockers if patient can tolerate Objective - Vital Signs/Intake and Output Vital Signs (last 24 hours): Temp Pulse Resp BP Pulse Ox 98.0 F 76 20 105/66 95 12/26/18 15:00 12/26/18 15:00 12/26/18 15:00 12/26/18 15:00 12/26/18 15:00 Intake and Output: 12/26/18 12/27/18 18:59 06:59 Intake Total 400 Balance 400 - Medications Medications: Current Medications Aspirin (Aspirin Chewable) 81 mg PO DAILY [facility] Last Admin: 12/26/18 10:52 Dose: Not Given Benzonatate (Tessalon Perles) 100 mg PO TID PRN PRN Reason: Cough Dextrose (Dextrose 50% Inj) 0 ml IV STAT PRN; Protocol PRN Reason: Hypoglycemia Protocol Dextrose (Glutose 15) 0 gm PO ONCE PRN; Protocol PRN Reason: Hypoglycemia Protocol Enoxaparin Sodium (Lovenox) 40 mg SC DAILY [facility] Last Admin: 12/26/18 10:55 Dose: 40 mg Glucagon (Glucagen Diagnostic Kit) 0 mg IM STAT PRN; Protocol PRN Reason: Hypoglycemia Protocol Dextrose (Dextrose 5% In Water 1000 Ml) 1,000 mls @ 0 mls/hr IV .Q0M PRN; Protocol PRN Reason: Hypoglycemia Protocol Insulin Human Regular (Novolin R) 0 unit SC [facility]; Protocol Last Admin: 12/26/18 16:58 Dose: Not Given Lisinopril (Zestril) 2.5 mg PO DAILY [facility] Loratadine (Claritin) 10 mg PO Q24H [facility] Last Admin: 12/26/18 01:53 Dose: 10 mg Metoclopramide HCl (Reglan) 5 mg IVP Q6H [facility] Stop: 12/28/18 10:00 Last Admin: 12/26/18 14:20 Dose: Not Given Pantoprazole Sodium (Protonix Inj) 40 mg IVP DAILY [facility] Last Admin: 12/26/18 10:55 Dose: 40 mg Rosuvastatin Calcium (Crestor) 20 mg PO HS [facility] Last Admin: 12/25/18 21:33 Dose: 20 mg Sucralfate (Carafate Oral Susp) 1 gm PO TID [facility] Stop: 12/30/18 23:59 Last Admin: 12/26/18 14:20 Dose: Not Given - Labs Labs: 12/26/18 07:50 12/26/18 07:50 PT 13.2 SECONDS (9.7-12.2) H 12/24/18 21:53 INR 1.2 12/24/18 21:53 APTT 35.7 SECONDS (21-34) H 12/24/18 21:53
--- NOTE | 2018-12-27 02:57 | CON ---
DATE: 12/25/2018 I was called for a GI consultation by the admitting medical team. The patient is seen and fully examined on 12/25/[address] Tian Sykes. The entire chart is reviewed including but not limited to the most recent lab and radiology study results, current and the previous medication lists, current and the previous medical events. Case discussed with the staff at length on 12/25/2018 at the time of my physical examination and GI consultation. HISTORY OF PRESENT ILLNESS: This is a 48-year-old male who was admitted to the hospital with the main complaints of midsternal pain and midepigastric pain post cardiac cath around two weeks ago, reported to be negative as per the image consultant. Denied any significant shortness of breath, chills or fever, evidence of active GI bleeding but nausea and dyspepsia mainly for the last three weeks. PAST MEDICAL HISTORY: Including but not limited to, 1. Hypertension. 2. Hyperlipidemia. 3. Coronary artery disease. 4. Peptic ulcer disease. SOCIAL HISTORY: No reported recent history of cigarette smoking or alcohol intake. FAMILY HISTORY: Unknown. CURRENT MEDICATIONS: Post-admission medication lists were reviewed. LABORATORY DATA: Initial blood test post admission showed normal CBC, but blood glucose level of 205 with potassium of 3.4. The patient had chest CAT scan done at the time of the admission, official report is seen indicative of cardiomegaly with possible pneumonia. PHYSICAL EXAMINATION: GENERAL: A 48-year-old male, afebrile with pulse of 92, respiratory rate 20 to 22, blood pressure of 130/82. HEENT: Showed pale, dry oral mucous membrane, nonicteric sclerae. LUNGS: Few scattered crepitation. Decreased air entry at bases. HEART: S1 and S2 with increased rate. ABDOMEN: Soft with mild generalized tenderness but mainly in the midepigastric and midabdominal line. No mass or organomegaly. No rebound tenderness or guarding. EXTREMITIES: Without significant clubbing, cyanosis or edema. NEUROLOGIC: No reported new neurological deficits, sensory or motor. No reported new focal deficits. IMPRESSION: 1. Chest pain, most likely noncardiac, to rule out gastric versus duodenal ulcer. 2. Multiple past medical histories as mentioned above. 3. Hyperglycemia of possible new episode. 4. On record, it has to be mentioned that the patient's troponin level reported to be normal as well as the total creatinine kinase with normal total protein and albumin. SUGGESTIONS: 1. Continue current management. 2. Carafate liquid. 3. Reglan IV. 4. Upper endoscopy at a.m. on 12/26/2018 when the patient is more stable clinically. 5. Further recommendation to follow and abdominal ultrasound to be ordered. Thank you for letting me to participate in your patient's case management. Usman Turner MD
[2018-12-27] MEDS: (Novolin R) Insulin Human Regular 100 units/ml vial SC SCH ×2 (07:09→12:58)
[2018-12-27 07:15] LABS: BASO % 0.2 % (0.0-2.0); EOS # 0.2 K/uL (0.0-0.7); EOS % 2.2 % (0.0-4.0); LYMPH # 1.5 K/uL (1.0-4.3); LYMPH % 19.9 % (20.0-40.0); MEAN CELL VOLUME 89.3 fL (80.0-94.0); MEAN CORPUSCULAR HEMOGLOBIN 30.7 pg (27.0-31.0); MEAN CORPUSCULAR HGB CONC 34.3 g/dL (33.0-37.0); MEAN PLATELET VOLUME 10.3 fL (7.2-11.7); MONO # 0.7 K/uL (0.0-0.8); MONO % 8.7 % (0.0-10.0); NEUT # 5.2 K/uL (1.8-7.0); RBC 5.23 Mil/uL (4.40-5.90); RED CELL DISTRIBUTION WIDTH 13.9 % (11.5-14.5); WHITE BLOOD COUNT 7.6 K/uL (4.8-10.8)
[2018-12-27 07:44] LABS: ALB/GLOB RATIO 1.5 (1.0-2.1); ALBUMIN 4.5 g/dL (3.5-5.0); ALT/SGPT 85 U/L (21-72); AST/SGOT 47 U/L (17-59); BLOOD UREA NITROGEN 15 mg/dL (9-20); CALCIUM 9.6 mg/dl (8.6-10.4); GFR NON-AFRICAN AMERICAN > 60
--- NOTE | 2018-12-27 08:31 | CP.PCM.PN ---
Objective - Vital Signs/Intake and Output Vital Signs (last 24 hours): Temp Pulse Resp BP Pulse Ox 98.1 F 67 20 103/66 95 12/27/18 00:00 12/27/18 00:00 12/27/18 00:00 12/27/18 00:00 12/27/18 00:00 - Medications Medications: Current Medications Aspirin (Aspirin Chewable) 81 mg PO DAILY [facility] Last Admin: 12/26/18 21:27 Dose: 81 mg Benzonatate (Tessalon Perles) 100 mg PO TID PRN PRN Reason: Cough Dextrose (Dextrose 50% Inj) 0 ml IV STAT PRN; Protocol PRN Reason: Hypoglycemia Protocol Dextrose (Glutose 15) 0 gm PO ONCE PRN; Protocol PRN Reason: Hypoglycemia Protocol Enoxaparin Sodium (Lovenox) 40 mg SC DAILY [facility] Last Admin: 12/26/18 10:55 Dose: 40 mg Glucagon (Glucagen Diagnostic Kit) 0 mg IM STAT PRN; Protocol PRN Reason: Hypoglycemia Protocol Dextrose (Dextrose 5% In Water 1000 Ml) 1,000 mls @ 0 mls/hr IV .Q0M PRN; Protocol PRN Reason: Hypoglycemia Protocol Insulin Human Regular (Novolin R) 0 unit SC ACHS [facility]; Protocol Last Admin: 12/27/18 07:09 Dose: Not Given Lisinopril (Zestril) 2.5 mg PO DAILY [facility] Loratadine (Claritin) 10 mg PO Q24H [facility] Last Admin: 12/27/18 01:52 Dose: 10 mg Metoclopramide HCl (Reglan) 5 mg IVP Q6H [facility] Stop: 12/28/18 10:00 Last Admin: 12/27/18 01:54 Dose: Not Given Pantoprazole Sodium (Protonix Inj) 40 mg IVP DAILY [facility] Last Admin: 12/26/18 10:55 Dose: 40 mg Rosuvastatin Calcium (Crestor) 20 mg PO HS [facility] Last Admin: 12/26/18 21:27 Dose: 20 mg Sucralfate (Carafate Oral Susp) 1 gm PO TID [facility] Stop: 12/30/18 23:59 Last Admin: 12/26/18 21:28 Dose: 1 gm - Labs Labs: 12/27/18 07:05 12/27/18 07:05 PT 13.2 SECONDS (9.7-12.2) H 05/25/19 21:53 INR 1.2 12/24/18 21:53 APTT 35.7 SECONDS (21-34) H 12/24/18 21:53 Assessment and Plan - Assessment and Plan (Free Text) Assessment: Patient is a 48 year old male with past medical history of CAD, hypertension, hypercholesterolemia, NIDDM2, HCV with cirrhosis presenting with chief complaint of chest pain. Plan: Atypical chest pain, acute - ACS vs GERD - EKG unchanged from prior admission - YAKOV neg x3 - Cardiology, Dr. Sykes, consulted - ASA - Echocardiogram shows normal LVEF 71%, moderately to markedly increased left ventricular wall thickness - Recent cath with normal coronaries - followup official CTA 12/24 - no evidence of PE - Cardiology consult, Dr. Bolanos - for second opinion per request of Dr. Sykes - -Stress test today - f/u - -Add SETH - Lisinopril 2.5 mg daily Meds -Lisinopril 2.5 mg PO daily -Crestor 20 mg PO HS Epigastric pain, acute - GI consulted, appreciate recs - Protonix - repeat EGD - f/u Transaminitis, chronic - Abd U/s: Limited study secondary to pt body habitus. Nodular and cirrhotic contour of the liver with associated increased echogenicity of the hepatic p arenchymal cortex suggestive for fatty infiltration vs. hepatic parenchymal disease. Partially contracted gallbladder. Limited visualization of the pancreas. - Hep C Ab reactive - HIV neg - Per pt, he has been diagnosed with HCV for past 15 y, [place] Hypokalemia, acute - monitor and replete Seasonal allergies, chronic - Claritin daily Hx hyperlipidemia, chronic - Crestor 20 mg PO QHS - Total chol 239, LDL 187, TG 74, HDL 44 Hx NIDDM, chronic - Hold home Metformin - RISS, Hypoglycemia protocol - Accucheck q6h as pt is fasting for Ramadan - A1c 6.7 PPX Protonix, Lovenox Please note: pt is fasting due to Ramadan. Dispo: pending repeat EGD and further GI recommendations Assessment and plan d/w Dr. Damion Salcedo, PGY-1
[2018-12-27] MEDS ORDERED: Midazolam 2 MG/2 ML VIAL ONE (10:46)
[2018-12-27] MEDS ORDERED: Propofol 10 mg/ml Inj (20 ML) ONE (10:46)
[2018-12-27] MEDS ORDERED: Belladonna-Phenobarbital PO STA (10:51)
[2018-12-27] MEDS ORDERED: Lidocaine Hydrochloride 5 ML INJ ONE (10:58)
[2018-12-27] MEDS: Sucralfate 1 gm/10 ml Oral Susp UD PO SCH ×2 (12:42→13:26)
[2018-12-27] MEDS: Enoxaparin 40 mg Syringe SC SCH (12:43)
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
--- NOTE | 2018-12-27 14:53 | CP.PCM.DIS ---
<Harry Salcedo - Last Filed: 12/27/18 15:15> Provider - Provider Date of Admission: 12/25/18 01:35 Attending physician: Damion Deluca MD Consults: 12/25/18 02:01 Cardiology Consult Routine Comment: Consulting Provider: Tian Sykes Consulting Physician: Tian Sykes Reason for Consult: chest pain 12/25/18 15:05 Cardiology Consult Routine Comment: Consulting Provider: Tristan Bolanos Consulting Physician: Tristan Bolanos Reason for Consult: second opinion for chest pain 12/25/18 20:29 Gastroenterology Consult Routine Comment: gastritis Consulting Provider: Usman Brewer Consulting Physician: Usman Brewer Reason for Consult: gastritis Time Spent in preparation of Discharge (in minutes): 45 Diagnosis - Discharge Diagnosis (1) Hiatal hernia Status: Acute Hospital Course - Lab Results Lab Results: Most Recent Lab Values WBC 7.6 K/uL (4.8-10.8) 12/27/18 07:05 RBC 5.23 Mil/uL (4.40-5.90) 12/27/18 07:05 Hgb 16.0 g/dL (12.0-18.0) 12/27/18 07:05 Hct 46.7 % (35.0-51.0) 12/27/18 07:05 MCV 89.3 fL (80.0-94.0) 12/27/18 07:05 MCH 30.7 pg (27.0-31.0) 12/27/18 07:05 MCHC 34.3 g/dL (33.0-37.0) 12/27/18 07:05 RDW 13.9 % (11.5-14.5) 12/27/18 07:05 Plt Count 272 K/uL (130-400) 12/27/18 07:05 MPV 10.3 fL (7.2-11.7) 12/27/18 07:05 Neut % (Auto) 69.0 % (50.0-75.0) 12/27/18 07:05 Lymph % (Auto) 19.9 % (20.0-40.0) L 12/27/18 07:05 Archer % (Auto) 8.7 % (0.0-10.0) 12/27/18 07:05 Eos % (Auto) 2.2 % (0.0-4.0) 12/27/18 07:05 Baso % (Auto) 0.2 % (0.0-2.0) 12/27/18 07:05 Neut # (Auto) 5.2 K/uL (1.8-7.0) 12/27/18 07:05 Lymph # (Auto) 1.5 K/uL (1.0-4.3) 12/27/18 07:05 Archer # (Auto) 0.7 K/uL (0.0-0.8) 12/27/18 07:05 Eos # (Auto) 0.2 K/uL (0.0-0.7) 12/27/18 07:05 Baso # (Auto) 0.0 K/uL (0.0-0.2) 12/27/18 07:05 PT 13.2 SECONDS (9.7-12.2) H 12/24/18 21:53 INR 1.2 12/24/18 21:53 APTT 35.7 SECONDS (21-34) H 12/24/18 21:53 Sodium 136 mmol/L (132-148) 12/27/18 07:05 Potassium 3.9 mmol/L (3.6-5.2) 12/27/18 07:05 Chloride 101 mmol/L (98-107) 12/27/18 07:05 Carbon Dioxide 27 mmol/L (22-30) 12/27/18 07:05 Anion Gap 13 (10-20) 12/27/18 07:05 BUN 15 mg/dL (9-20) 12/27/18 07:05 Creatinine 0.9 mg/dL (0.8-1.5) 12/27/18 07:05 Est GFR ( Amer) > 60 12/27/18 07:05 Est GFR (Non-Af Amer) > 60 12/27/18 07:05 POC Glucose (mg/dL) 106 mg/dL (65-110) 12/27/18 12:58 Random Glucose 118 mg/dL (75-110) H D 12/27/18 07:05 Calcium 9.6 mg/dl (8.6-10.4) 12/27/18 07:05 Phosphorus 3.5 mg/dL (2.5-4.5) 12/27/18 07:05 Magnesium 1.9 mg/dL (1.6-2.3) 12/27/18 07:05 Total Bilirubin 1.0 mg/dL (0.2-1.3) 12/27/18 07:05 AST 47 U/L (17-59) 12/27/18 07:05 ALT 85 U/L (21-72) H 12/27/18 07:05 Alkaline Phosphatase 59 U/L (38-126) 12/27/18 07:05 Total Creatine Kinase 89 U/L (55-170) 12/25/18 13:12 CK-MB (Mass) 1.53 ng/mL (0.0-3.38) 12/25/18 13:12 Troponin I 0.0230 ng/mL (0.00-0.120) 12/25/18 13:12 NT-Pro-B Natriuret Pep 428 pg/mL (0-900) 12/24/18 21:53 Total Protein 7.6 g/dL (6.3-8.3) 12/27/18 07:05 Albumin 4.5 g/dL (3.5-5.0) 12/27/18 07:05 Globulin 3.1 gm/dL (2.2-3.9) 12/27/18 07:05 Albumin/Globulin Ratio 1.5 (1.0-2.1) 12/27/18 07:05 Urine Opiates Screen Negative (NEGATIVE) 12/26/18 02:34 Urine Methadone Screen Negative (NEGATIVE) 12/26/18 02:34 Ur Barbiturates Screen Negative (NEGATIVE) 12/26/18 02:34 Ur Phencyclidine Scrn Negative (NEGATIVE) 12/26/18 02:34 Ur Amphetamines Screen Negative (NEGATIVE) 12/26/18 02:34 U Benzodiazepines Scrn Negative (NEGATIVE) 12/26/18 02:34 U Oth Cocaine Metabols Negative (NEGATIVE) 12/26/18 02:34 U Cannabinoids Screen Negative (NEGATIVE) 12/26/18 02:34 - Hospital Course Hospital Course: HPI Patient is a 48 year old male with past medical history of CAD, hypertension, hypercholesterolemia, NIDDM2, HCV with cirrhosis presenting with chief complaint of chest discomfort which began this morning. Discomfort is described as an aching sensation located in epigastric region, with radiation up to his throat. Also admits to bilateral leg cramping unchanged from prior, which he gets while fasting. Patient had cardiac cath with Dr. Sykes on previous admission which was unremarkable. Denies fevers, chills, shortness of breath, nausea, vomiting, abdominal pain, diarrhea, dysuria. Hospital Course Patient was hospitalized for chest pain workup to rule out ACS. Patient had been hospitalized with recent cath just days prior to this admission showing normal coronary arteries. Cardiology was consulted, Dr. Sykes. Patient was found to have inverted T waves on EKG, which were also present on EKG from admission the week before. Due to EKG changes, Dr. Sykes requested second cardiology opinion, Dr. Bolanos. Dr. Bolanos agreed with initial assessment that chest pain was most likely due to gastric reflux. Started patient on SETH inhibitor low dose for low-grade systolic dysfunction on echo. GI was consulted, Dr. Brewer. Patient had upper EGD which demonstrated medium- grade hiatal hernia. Patient discharged with instruction to follow up with GI and cardio. Please note this is just a summary of this hospitalization. For details please refer to complete medical records. Imaging - Abd U/s: Limited study secondary to pt body habitus. Nodular and cirrhotic contour of the liver with associated increased echogenicity of the hepatic p arenchymal cortex suggestive for fatty infiltration vs. hepatic parenchymal disease. Partially contracted gallbladder. Limited visualization of the pancreas. Discharge Exam - Head Exam Head Exam: ATRAUMATIC, NORMAL INSPECTION, NORMOCEPHALIC - Eye Exam Eye Exam: EOMI, Normal appearance - Respiratory Exam Respiratory Exam: Clear to PA & Lateral, UNREMARKABLE. absent: Rhonchi, Wheezes - Cardiovascular Exam Cardiovascular Exam: REGULAR RHYTHM, +S1, +S2 - GI/Abdominal Exam GI & Abdominal Exam: Normal Bowel Sounds, Soft. absent: Tenderness - Extremities Exam Extremities exam: normal inspection - Neurological Exam Neurological exam: Alert, CN II-XII Intact, Oriented x3 - Psychiatric Exam Psychiatric exam: Normal Affect, Normal Mood - Skin Skin Exam: Dry, Intact Discharge Plan - Discharge Medications Prescriptions: Aspirin [Aspirin Chewable] 81 mg PO DAILY #30 ctb Loratadine [Claritin] 10 mg PO Q24H #30 tab metFORMIN [glucOPHAGE] 850 mg PO BID #60 tab Metoclopramide [Reglan] 5 mg PO ACHS #90 tab Metoprolol Succinate XL [Toprol XL] 25 mg PO DAILY 90 Days #90 tab Omeprazole 40 mg PO DAILY #30 capsule. Rosuvastatin Calcium [Crestor] 20 mg PO HS #30 tab Sucralfate [Carafate Oral Susp] 1 gm PO TID 30 Days #90 [facility] - Follow Up Plan Condition: FAIR Disposition: HOME/ ROUTINE Instructions: Heart Healthy Diet, Diabetes Exchange Diet, Acid Reflux (Gastroesophageal Reflux Disease), Adult (DC), Diabetes Diet , Chest Pain (DC), Upper GI Endoscopy (DC) Additional Instructions: Patient is cleared for discharge per primary team. Please continue taking all of your home medications. Prescriptions have been provided for your medications, to take as follows: -Reglan 5 mg 1 tab by mouth before meals and at bedtime -Carafate 1 gm 1 tab by mouth three times a day at 8am, 2pm, and 8pm for two weeks -Omeprazole 40 mg 1 tab by mouth daily at 8am -Claritin 10 mg 1 tab by mouth daily at 8am -Aspirin 81 mg 1 tab by mouth daily at 8am -Crestor 20 mg 1 tab by mouth at bedtime -Metformin 850 mg 1 tab by mouth twice a day at 8am and 8pm -Losartan 25 mg 1 tab by mouth daily at 8am To reduce the symptoms of heartburn: -Do not lay down or recline for at least one hour after eating -Your last meal should be at least 3 hours before bedtime Please make sure to follow up with your PMD, Dr. Campa. Through Dr. Campa you can make an appointment to follow up with cardiology. Dr. Campa can provide you with a referral to see Dr. Sykes in the office. Dr. Brewer (GI) would also like you to follow up in his office in about 2 weeks to go over biopsy results. YOu can contact his office at [phone] for an appointment - address is [address] [place] [address], [address]. Please return to ER if symptoms recur or worsen. <Damion Deluca - Last Filed: 12/28/18 19:16> Provider - Provider Date of Admission: 12/25/18 01:35 Attending physician: Damion Deluca MD Consults: 12/25/18 02:01 Cardiology Consult Routine Comment: Consulting Provider: Tian Sykes Consulting Physician: Tian Sykes Reason for Consult: chest pain 12/25/18 15:05 Cardiology Consult Routine Comment: Consulting Provider: Tristan Bolanos Consulting Physician: Tristan Bolanos Reason for Consult: second opinion for chest pain 12/25/18 20:29 Gastroenterology Consult Routine Comment: gastritis Consulting Provider: Usman Brewer Consulting Physician: Usman Brewer Reason for Consult: gastritis Hospital Course - Lab Results Lab Results: Most Recent Lab Values WBC 7.6 K/uL (4.8-10.8) 12/27/18 07:05 RBC 5.23 Mil/uL (4.40-5.90) 12/27/18 07:05 Hgb 16.0 g/dL (12.0-18.0) 12/27/18 07:05 Hct 46.7 % (35.0-51.0) 12/27/18 07:05 MCV 89.3 fL (80.0-94.0) 12/27/18 07:05 MCH 30.7 pg (27.0-31.0) 12/27/18 07:05 MCHC 34.3 g/dL (33.0-37.0) 12/27/18 07:05 RDW 13.9 % (11.5-14.5) 12/27/18 07:05 Plt Count 272 K/uL (130-400) 12/27/18 07:05 MPV 10.3 fL (7.2-11.7) 12/27/18 07:05 Neut % (Auto) 69.0 % (50.0-75.0) 12/27/18 07:05 Lymph % (Auto) 19.9 % (20.0-40.0) L 12/27/18 07:05 Archer % (Auto) 8.7 % (0.0-10.0) 12/27/18 07:05 Eos % (Auto) 2.2 % (0.0-4.0) 12/27/18 07:05 Baso % (Auto) 0.2 % (0.0-2.0) 12/27/18 07:05 Neut # (Auto) 5.2 K/uL (1.8-7.0) 12/27/18 07:05 Lymph # (Auto) 1.5 K/uL (1.0-4.3) 12/27/18 07:05 Archer # (Auto) 0.7 K/uL (0.0-0.8) 12/27/18 07:05 Eos # (Auto) 0.2 K/uL (0.0-0.7) 12/27/18 07:05 Baso # (Auto) 0.0 K/uL (0.0-0.2) 12/27/18 07:05 PT 13.2 SECONDS (9.7-12.2) H 12/24/18 21:53 INR 1.2 12/24/18 21:53 APTT 35.7 SECONDS (21-34) H 12/24/18 21:53 Sodium 136 mmol/L (132-148) 12/27/18 07:05 Potassium 3.9 mmol/L (3.6-5.2) 12/27/18 07:05 Chloride 101 mmol/L (98-107) 12/27/18 07:05 Carbon Dioxide 27 mmol/L (22-30) 12/27/18 07:05 Anion Gap 13 (10-20) 12/27/18 07:05 BUN 15 mg/dL (9-20) 12/27/18 07:05 Creatinine 0.9 mg/dL (0.8-1.5) 12/27/18 07:05 Est GFR ( Amer) > 60 12/27/18 07:05 Est GFR (Non-Af Amer) > 60 12/27/18 07:05 POC Glucose (mg/dL) 106 mg/dL (65-110) 12/27/18 12:58 Random Glucose 118 mg/dL (75-110) H D 12/27/18 07:05 Calcium 9.6 mg/dl (8.6-10.4) 12/27/18 07:05 Phosphorus 3.5 mg/dL (2.5-4.5) 12/27/18 07:05 Magnesium 1.9 mg/dL (1.6-2.3) 12/27/18 07:05 Total Bilirubin 1.0 mg/dL (0.2-1.3) 12/27/18 07:05 AST 47 U/L (17-59) 12/27/18 07:05 ALT 85 U/L (21-72) H 12/27/18 07:05 Alkaline Phosphatase 59 U/L (38-126) 12/27/18 07:05 Total Creatine Kinase 89 U/L (55-170) 12/25/18 13:12 CK-MB (Mass) 1.53 ng/mL (0.0-3.38) 12/25/18 13:12 Troponin I 0.0230 ng/mL (0.00-0.120) 12/25/18 13:12 NT-Pro-B Natriuret Pep 428 pg/mL (0-900) 12/24/18 21:53 Total Protein 7.6 g/dL (6.3-8.3) 12/27/18 07:05 Albumin 4.5 g/dL (3.5-5.0) 12/27/18 07:05 Globulin 3.1 gm/dL (2.2-3.9) 12/27/18 07:05 Albumin/Globulin Ratio 1.5 (1.0-2.1) 12/27/18 07:05 Urine Opiates Screen Negative (NEGATIVE) 12/26/18 02:34 Urine Methadone Screen Negative (NEGATIVE) 12/26/18 02:34 Ur Barbiturates Screen Negative (NEGATIVE) 12/26/18 02:34 Ur Phencyclidine Scrn Negative (NEGATIVE) 12/26/18 02:34 Ur Amphetamines Screen Negative (NEGATIVE) 12/26/18 02:34 U Benzodiazepines Scrn Negative (NEGATIVE) 12/26/18 02:34 U Oth Cocaine Metabols Negative (NEGATIVE) 12/26/18 02:34 U Cannabinoids Screen Negative (NEGATIVE) 12/26/18 02:34 Attending/Attestation - Attestation I have personally seen and examined this patient.: Yes I have fully participated in the care of the patient.: Yes I have reviewed all pertinent clinical information, including history, physical exam and plan: Yes Notes (Text): 12/28/18 19:16 This is a late entry. Care of this patient and discharge instructions were gone over in detail with resident Dr. Salcedo. Damion Deluca D.O.
[2018-12-27 16:26] VITALS: BP 107/69; PULSE 76; TEMP 98.3; O2SAT 97
--- NOTE | 2018-12-28 00:08 | CARD ---
APPROVED REPORT Date of service: 12/24/2018 EKG Measurement Heart [id number] <Conclusion> Normal sinus rhythm Possible Left atrial enlargement Left ventricular hypertrophy with repolarization abnormality Abnormal ECG
--- NOTE | 2018-12-28 07:44 | CARD ---
APPROVED REPORT Date of service: 12/25/2018 EKG Measurement Heart [id number] <Conclusion> Normal sinus rhythm Left ventricular hypertrophy with repolarization abnormality ST elevation, consider inferior injury vs early repolarization changes
[2018-12-28] MEDS ORDERED: Metoprolol Succinate 25 mg XL Tab PO SCH (10:00)
== END 2018-12-27 16:28 | disposition home or self-care (01) ==
LOC: C.ER 21:26 → C.5S 12-25 01:35
PROVIDERS: ADMIT Family Medicine; ATTEND Family Medicine
DX: R07.89 Other chest pain (principal); K74.60 Unspecified cirrhosis of liver; Z79.84 Long term (current) use of oral hypoglycemic drugs; Z79.899 Other long term (current) drug therapy; Z80.0 Family history of malignant neoplasm of digestive organs; Z83.1 Family history of other infectious and parasitic diseases; E11.43 Type 2 diabetes mellitus with diabetic autonomic (poly)neuropathy; E11.65 Type 2 diabetes mellitus with hyperglycemia; E78.00 Pure hypercholesterolemia, unspecified; E78.5 Hyperlipidemia, unspecified; I10 Essential (primary) hypertension; I25.10 Atherosclerotic heart disease of native coronary artery without angina pectoris; K21.0 Gastro-esophageal reflux disease with esophagitis; K31.84 Gastroparesis; K44.9 Diaphragmatic hernia without obstruction or gangrene; Z87.11 Personal history of peptic ulcer disease; B19.20 Unspecified viral hepatitis C without hepatic coma
CPT/HCPCS: 36415; 43235; 43239; 71275; 80053; 80324; 80345; 80346; 80349; 80353; 80358; 80361; 82948; 83735; 83880; 83992; 84100; 84484; 85025; 85027; 85610; 85730; 88305; 99284; C9113; G0378; J1650; J2250; J2704; J2765; J3010; J7030; J7040; Q9967